=== PATIENT | female | born 1950 ===

== ENCOUNTER 2020-06-03 18:04 | Emergency (ER) | payer OTHER ==
[~2020-06-03] VITALS: Ht 162.6 cm; Wt 66.2 kg
[2020-06-03] MEDS ORDERED: TROMBONEX CAPS1 EACH (18:53)
[2020-06-03] MEDS ORDERED: ADULT LOW DOSE81 M1 (18:53)
[2020-06-03] MEDS ORDERED: VALSARTAN80 MG (18:53)
[2020-06-03] MEDS ORDERED: AMBIEN10 MG (18:54)
[2020-06-03] MEDS ORDERED: PRAVASTATIN SOD10 MG (18:54)
[2020-06-03] MEDS ORDERED: DICLOFENAC EPO1 EACH (18:56)
== END 2020-06-03 23:20 | disposition home or self-care (01) ==
LOC: ER 18:04
DX: M25.572 Pain in left ankle and joints of left foot (principal); M79.605 Pain in left leg; R60.0 Localized edema